=== PATIENT | male | born 1980 | race Caucasian/White ===

== ENCOUNTER 2020-12-13 06:52 | Outpatient (NON) | payer OTHER, SELFPAY ==
[2020-12-14 00:37] LABS: SARS-CoV-2 RNA PCR Negative
== END 2020-12-13 06:53 ==
LOC: ANHCOVIDDT 06:52
PROVIDERS: PCP Family Medicine; Visit Provider Nurse Practitioner Family
DX: Z20.822 Contact with and (suspected) exposure to COVID-19 (principal); R05 Cough
CPT/HCPCS: C9803; U0003; U0005